=== PATIENT | male | born 1990 | race Two or more races ===

== ENCOUNTER 2024-02-25 22:39 | Emergency (ER) | payer MEDICAID, OTHER ==
[~2024-02-25] VITALS: Ht 175.3 cm; Wt 75.0 kg
[2024-02-25 22:57] LABS: Basophils # (auto) 0 10 ^3/uL (0-0.2); Eosinophils # (auto) 0 10 ^3/uL (0-0.8); Monocytes # (auto) 1.4 10 ^3/uL (0-1.3); Nucleated Red Blood Cells % 0.1 %; Red Cell Distribution Width 13.5 % (11.8-14.3)
[2024-02-25 22:58] LABS: Basophils % (auto) 0.3 % (0.0-2.0); Hematocrit 51.6 % (41.0-53.0); Hemoglobin 18.5 g/dL (13.5-17.5); Lymphocytes # (auto) 1.7 10 ^3/uL (0.4-5.4); Lymphocytes % (auto) 10.9 % (10.0-50.0); Mean Corpuscular Hemoglobin 31.7 pg (28.0-32.0); Mean Corpuscular Hgb Conc. 35.8 g/dL (32.0-36.0); Mean Corpuscular Volume 88.5 fL (80.0-100.0); Monocytes % (auto) 8.7 % (0.0-12.0); Neutrophils # (auto) 12.7 10 ^3/uL (1.6-8.6); Neutrophils % (auto) 80.1 % (37.0-80.0); Red Blood Cells 5.83 10^6/uL (4.5-5.90); White Blood Cell 15.9 10^3/uL (4.4-10.8)
[2024-02-25 23:13] LABS: Alanine Aminotransferase 29 U/L (7-40); Albumin 5.4 g/dL (3.2-4.8); Alkaline Phosphatase 89 U/L (46-116); Anion Gap 14 (5-15); Aspartate Aminotransferase 17 U/L (13-40); BUN/Creatinine Ratio 8.7 (10.0-20.0); Bilirubin, Total 1.1 mg/dL (0.2-1.0); Blood Urea Nitrogen 17 mg/dL (9-23); Carbon Dioxide 22 mmol/L (20-30); Chloride 94 mmol/L (98-107); Glucose 147 mg/dL (74-106); Magnesium 2.1 mg/dL (1.6-2.6); Potassium 3.5 mmol/L (3.5-5.1); Sodium 130 mmol/L (136-145)
[2024-02-25 23:14] LABS: Total Protein 8.9 g/dL (5.7-8.2)
[2024-02-25 23:37] LABS: INR 1.06 (0.9-1.15); Partial Thromboplastin Time 27.6 SEC (24.5-34.5); Prothrombin Time 11.2 sec (9.3-11.8)
[2024-02-26 01:04] VITALS: BP 159/100; RESP 14; TEMP 98.1; O2SAT 97
[2024-02-26] MEDS: MAALOX PLUS or MAALOX 30 ML PO ONE (01:07)
[2024-02-26] MEDS: SODIUM CHLORIDE 0.9% 1,000 ML IV ONE ×2 (01:08→01:34)
[2024-02-26] MEDS: ONDANSETRON HCL 4 MG/2 ML VIAL IV ONE (01:08)
[2024-02-26 01:48] VITALS: PULSE 85
== END 2024-02-26 02:12 | disposition left against medical advice (07) ==
LOC: EDSEX 22:39 → ER 22:39
DX: E86.0 Dehydration (principal); R07.89 Other chest pain; R10.13 Epigastric pain; R11.2 Nausea with vomiting, unspecified; R53.1 Weakness; F15.90 Other stimulant use, unspecified, uncomplicated
CPT/HCPCS: 36415; 71045; 80053; 83735; 83880; 84484; 85025; 85610; 85730; 93005; 96361; 96374; 99285; J2405; J7030